=== PATIENT | female | born 1980 | race Hispanic/Latino ===

== ENCOUNTER 2018-06-26 13:01 | Emergency (ER) | payer SELFPAY ==
[2018-06-26 13:07] VITALS: BP 126/88
--- NOTE | 2018-06-26 13:08 | Emergency Department Report ---
Blank Doc - Documentation Documentation: This is a 38-year-old female that presents with right finger lac. Stated cut herself while turning light off by a nail. Tetanus UTD 2018. This initial assessment/diagnostic orders/clinical plan/treatment(s) is/are subject to change based on patient's health status, clinical progression and re- assessment by fellow clinical providers in the ED. Further treatment and workup at subsequent clinical providers discretion. Patient/guardians urged not to elope from the ED as their condition may be serious if not clinically assessed and managed. Initial orders include: 1- Patient sent to [facility] for further evaluation and treatment
[2018-06-26] MEDS ORDERED: IBUPROFEN PO ONE ×2 (13:09→13:32)
--- NOTE | 2018-06-26 13:42 | XRay Report ---
RIGHT FINGERS, 3 VIEWS History: Laceration, pain. Findings: There is soft tissue swelling and focal laceration at the level of the PIP joint of the fourth digit. No acute osseous injury or joint pathology is identified. There is an approximate 5 mm density adjacent to the PIP joint of the fourth digit which could represent a skinfold or a soft tissue foreign body. Please correlate with the imaging the patient. Impression: Soft tissue findings as described above. No acute osseous injury is identified.
== END 2018-06-26 14:41 | disposition left against medical advice (07) ==
LOC: ED 13:01
DX: M79.641 Pain in right hand (principal); Z53.21 Procedure and treatment not carried out due to patient leaving prior to being seen by health care provider